=== PATIENT | male | born 1965 | race Caucasian/White ===

== ENCOUNTER → 2024-02-19 12:59 | Outpatient (REF) | payer OTHER, SELFPAY | LOC: HWEVLT 12:59 | PROVIDERS: ATTENDING PHYSICIAN Radiology Vascular & Interventional Radiology | DX: I83.891 Varicose veins of right lower extremity with other complications (principal) | CPT/HCPCS: 93971 ==

== ENCOUNTER → 2024-07-06 13:41 | Outpatient (REF) | payer OTHER, SELFPAY | LOC: HWEVLT 13:41 | PROVIDERS: ATTENDING PHYSICIAN Radiology Diagnostic Radiology | DX: I83.891 Varicose veins of right lower extremity with other complications (principal) | CPT/HCPCS: 93971 ==